=== PATIENT | male | born 1955 | race Two or more races ===

== ENCOUNTER 2017-04-07 09:23 | Observation (INO) | payer SELFPAY ==
--- NOTE | 2017-04-07 09:44 | CPEKG ---
Heart Rate: 74 RR Interval: 811 P-R Interval: 160 QRSD Interval: 92 QT Interval: 396 QTC Interval: 440 P Kanaranzi: 60 QRS Kanaranzi: 18 T Wave Kanaranzi: 33 EKG Severity - NORMAL ECG - EKG Impression: SINUS RHYTHM Electronically Signed By: Jalil Diaz 07-Apr-2017 15:55:36
--- NOTE | 2017-04-07 10:07 | EDPHY ---
H & P Time Seen by Provider: 04/07/17 09:25 HPI/ROS: Chief Complaint: Syncope HPI: 61-year-old male with a history of type 2 diabetes had a syncopal episode at work today. Had felt well prior to this. Began feeling a little lightheaded and lost consciousness. He was unconscious for about 5 minutes but he was incontinent of stool. There is no seizure-type activity. He was seen at [facility] yesterday with left leg pain. He was sent home on pain medications and stated take these at 5 o'clock this morning without eating. No chest pain or shortness of breath. No palpitations. Denies any calf swelling. No long. Is of immobility. ROS: 10 point Review of Systems is negative except as noted in the HPI. PMH: Type 2 diabetes Social History: No smoking, no alcohol, no recreational drug use Family History: non-contributory Physical Exam: Gen: Awake, Alert, No Distress HEENT: Nose: no rhinorrhea Eyes: PERRLA, EOMI Mouth: Moist mucosa Neck: Supple, no JVD Chest: nontender, lungs clear to auscultation Heart: S1, S2 normal, no murmur Abd: Soft, non-tender, no guarding Back: no CVA tenderness, no midline tenderness Ext: no edema, non-tender Skin: no rash Neuro: CN II-XII intact, Sensation grossly intact, Strength 5/5 in bilateral upper and lower extremities Constitutional: Initial Vital Signs Temperature (C) 36.7 C 04/07/17 09:36 Heart Rate 73 04/07/17 09:36 Respiratory Rate 18 04/07/17 09:36 Blood Pressure 149/67 H 04/07/17 09:36 O2 Sat (%) 98 04/07/17 09:36 O2 Delivery Mode Room Air Allergies/Adverse Reactions: No Known Allergies Allergy (Unverified 04/07/17 09:38) Home Medications: Medication Instructions Recorded glyBURIDE [Glyburide] 2.5 mg PO BIDMEAL 04/07/17 metFORMIN HCL [Glucophage 500 mg 500 mg PO BIDMEAL 04/07/17 (*)] Medical Decision Making - Diagnostics EKG Interpretation: ECG time 9:41 a.m.. Sinus rhythm with a rate of 74, normal axis, normal intervals, no acute ST or T-wave changes. Impression: Normal ECG. Imaging Results: Imaging Impressions Chest X-Ray 04/07/17 10:07 Impression: Normal chest. ED Course/Re-evaluation: Status post syncopal event. This certainly could be vasovagal secondary to his medications that he took. He does not have any calf swelling or vital signs findings suggestive of a PE time. His D-dimer is normal. ECG is unremarkable. Troponin negative. Given his risk factors coronary disease his age in his diabetes he will need to be admitted for syncope workup. I have discussed with Dee Calhoun. Patient to be admitted under Dr. Palacios's service. Departure - Departure Disposition: [facility] Inpatient Acute Clinical Impression: Syncope Condition: Fair
[2017-04-07 10:15] LABS: % IMMATURE GRANULYOCYTES 0.4 % (0.0-1.1); ABSOLUTE IMMATURE GRANULOCYTES 0.03 10^3/uL (0.00-0.10); ADD DIFF? NO; ADD MORPH? YES; ADD SCAN? NO; ATYPICAL LYMPHOCYTE FLAG 10 (0-99); FRAGMENT RBC FLAG 20 (0-99); HEMATOCRIT 34.2 % (40.0-51.0); HEMOGLOBIN 9.9 g/dL (13.7-17.5); LEFT SHIFT FLG 0 (0-99); LIPEMIA HEMOLYSIS FLAG 70 (0-99); MEAN CELL HEMOGLOBIN 19.8 pg (27.9-34.1); MEAN PLATELET VOLUME 9.2 fL (8.7-11.7); PLATELET CLUMPS FLAG 0 (0-99); PLATELET COUNT 537 10^3/uL (150-400); RED BLOOD CELL COUNT 4.99 10^6/uL (4.40-6.38)
[2017-04-07 10:18] LABS: ANION GAP 12 mEq/L (8-16); CALCIUM 8.9 mg/dL (8.5-10.4); CARBON DIOXIDE 22 mEq/l (22-31); CHLORIDE 103 mEq/L (97-110); CREATININE 0.8 mg/dL (0.7-1.3); GLOMERULAR FILTRATION RATE > 60; GLUCOSE 140 mg/dL (70-100); MEAN CELL HEMOGLOBIN CONCENTR. 28.9 g/dL (32.4-36.7); MEAN CELL VOLUME 68.5 fL (81.5-99.8); POTASSIUM 3.8 mEq/L (3.5-5.2); RED CELL DISTRIBUTION WIDTH 20.9 % (11.5-15.2); SODIUM 137 mEq/L (134-144)
[2017-04-07 10:29] LABS: TROPONIN I < 0.012 ng/mL (0.000-0.034)
[2017-04-07 10:52] LABS: PLATELET ESTIMATE INCREASED (ADEQ)
[2017-04-07 10:57] LABS: ELLIPTOCYTES 1+; HYPOCHROMIA 3+; MICROCYTES 3+; POLYCHROMASIA 1+
[2017-04-07] MEDS ORDERED: ONDANSETRON DISINTEGRATING 4 MG TAB PO PRN (11:52)
[2017-04-07] MEDS ORDERED: ONDANSETRON 4 MG/2 ML VIAL IVP PRN (11:52)
[2017-04-07] MEDS ORDERED: ACETAMINOPHEN 325 MG TAB PO PRN (11:52)
[2017-04-07 12:26] LABS: % SATURATION 4 % (20-55); TOTAL IRON BINDING CAPACITY 497 ug/dL (260-490)
[2017-04-07] MEDS ORDERED: IBUPROFEN 600 MG TAB PO PRN (14:03)
--- NOTE | 2017-04-07 15:01 | GHP ---
[f rep st] HISTORY AND PHYSICAL DATE OF ADMISSION: 04/07/2017 CHIEF COMPLAINT: Syncope. HISTORY OF PRESENT ILLNESS: A 61-year-old Prydein[place]-speaking male, a history of diabetes, presented after a syncopal episode at work. 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 The only symptom he had was seeing spots briefly right before. Denies any chest pain, shortness of breath, dizziness, lightheadedness, or palpitations. Did not eat breakfast this morning. He was started on Robaxin yesterday by his clinic due to leg pain and took a dose this morning. Denies fevers, chills, or sweats. No nausea, vomiting, or diarrhea. He has complained of new left knee, fibula pain starting last week and the reason when he went to his doctor at [facility] yesterday. It is a burning pain from the lateral aspect below the knee to his foot. He says his foot is weak. He can still walk on it. Has occasional blood in the stool. No melena. Has been told in the past he has hemorrhoids. REVIEW OF SYSTEMS: I completed a 10-point review of systems, negative except as noted in the HPI. PAST MEDICAL HISTORY: Diabetes, hemorrhoids. Had a colonoscopy 10 years ago and was told that he had hemorrhoids. PAST SURGICAL HISTORY: None. MEDICATIONS: Glipizide, metformin. ALLERGIES: None. FAMILY HISTORY: Diabetes. No coronary artery disease or strokes. Brother with colon cancer. SOCIAL HISTORY: Lives in [place] with one of his sons. No alcohol, tobacco, or illicits. PHYSICAL EXAM: VITAL SIGNS: Temperature 36.9, blood pressure 130/70, heart rate 76, respirations 16, 92% on room air. GENERAL: Lying in bed, in no acute distress. HEENT: PERRLA. Conjunctival pallor. Poor dentition. CV: Regular rate and rhythm. No murmurs, gallops, or rubs. LUNGS: Clear. No crackles or wheezing. ABDOMEN: Soft, nontender, nondistended. Positive bowel sounds. : No suprapubic tenderness. Does have external hemorrhoids. No blood. MUSCULOSKELETAL: 5/5 upper and lower extremities strength. Inability to plantar flex left foot. Normal sensation to touch throughout. Tender to palpation at the fibular head. NEURO: Normal proprioception. LABS: WBC of 7, hemoglobin 9, hematocrit 34, platelets 537. D-dimer is negative. Sodium 137, potassium 3.8, chloride 103, carbon dioxide 22, creatinine 0.8, glucose 140, calcium 8.9. Troponin less than 0.012. Iron sat 4 , iron 20, TIBC is 497. EKG is personally reviewed by me, normal sinus rhythm, no ST elevation or depression. Chest x-ray personally reviewed by me, no opacity or effusion. ASSESSMENT/PLAN: 1. Syncope. Suspect this is multifactorial in the setting of a new medication , Robaxin, and not eating breakfast this morning. He has not had any other similar symptoms. No CP or SOB. EKGs are reassuring with no ischemia, arrhythmia. D-dimer is negative, so no suspicion for pulmonary embolism. Will repeat troponin and EKG, monitor on telemetry. 2. Microcytic anemia: The patient does report intermittent blood in stool. He does have a history of hemorrhoids and there was noted on exam. Will check a fecal occult workup here, but he does need to have a repeat colonoscopy as an outpatient. 3. Left footdrop: This is new over the past week. He cannot plantar flex his foot. Suspect possible tibial nerve impingement. Xray pending. Will likely need an EMG study as an outpatient. 4. Leg pain. Initially concern for possible limb ischemia. However, has good pulses and symptoms are not consistent with this diagnosis. Evaluation as stated above. Trial gabapentin. 5. Diabetes. Will resume home medications. 6. Diet: Cardiac. 7. DVT prophylaxis: SCDs given anemia. 8. Disposition: Patient warrants observation admission given the acute syncopal episode, warranting repeat troponin and telemetry. /[id number]/MODL MTDD
[2017-04-07 15:15] LABS: HEMATOCRIT 33.6 % (40.0-51.0); HEMOGLOBIN 9.8 g/dL (13.7-17.5)
[2017-04-07 15:31] LABS: HEMOGLOBIN A1C 6.4 % (4.0-6.0)
[2017-04-07] MEDS: metFORMIN HCL 500 MG TAB PO SCH (18:20)
[2017-04-07] MEDS: glyBURIDE 2.5 MG TAB PO SCH (18:20)
[2017-04-07] MEDS: FERROUS SULFATE 325 MG TAB PO SCH (18:20)
[2017-04-07] MEDS: GABAPENTIN 300 MG CAP PO SCH (20:19)
[2017-04-07] MEDS ORDERED: FERROUS SULFATE 325 MG TAB PO SCH (21:00)
[2017-04-08 05:16] LABS: CHOLESTEROL 149 mg/dL (140-220); CHOLESTEROL/HDL RATIO 3.17 RATIO (1.00-4.97); HIGH DENSITY LIPOPROTEIN 47 mg/dL (40-65); LOW DENSITY LIPOPROTEIN 75 mg/dL (80-100); NON-HIGH DENSITY LIPOPROTEIN 102 mg/dL (90-129); TRIGLYCERIDE 136 mg/dL (40-150); VERY LOW DENSITY LIPOPROTEINS 27 mg/dL (8-25)
[2017-04-08 08:24] VITALS: BP 109/62; PULSE 65; RESP 18; TEMP 98.5; O2SAT 92
[2017-04-08] MEDS: GABAPENTIN 300 MG CAP PO SCH (08:31)
[2017-04-08] MEDS: glyBURIDE 2.5 MG TAB PO SCH (08:31)
[2017-04-08] MEDS: metFORMIN HCL 500 MG TAB PO SCH (08:31)
[2017-04-08] MEDS: FERROUS SULFATE 325 MG TAB PO SCH (08:31)
--- NOTE | 2017-04-08 08:39 | HOSPPROG ---
Hospitalist Progress Note Assessment/Plan: #Syncope: likely due to medication and not eating breakfast; possibly hypoglycemia. No e/o arrhythmia or ischemia. #Microcytic/iron deficiency anemia: has ext hemorrhoids, but needs colonoscopy michelle with fam hx of colon cancer #Left leg pain: xray shows tib/fib OA. Foot drop may be due to nerve compression. Need outpatient EMG, PT. Stop Robaxin since not spasms. Start gabapentin 300mg hs #Hypoglycemia: has been having several lows at home. Good control with A1c 6.4. Stop glyburide #DC today Time spent on visit: 40 min counseling son and patient on meds, FU plan and coordinating DC Subjective: low sugar last night, felt dizzy. Has low sugars at home Objective: Vital Signs Temp Pulse Resp BP Pulse Ox 36.9 C 65 18 109/62 92 04/08/17 08:00 04/08/17 08:00 04/08/17 08:00 04/08/17 08:00 04/08/17 08:00 Laboratory Results 04/07/17 Unknown 04/07/17 Unknown 04/07/17 04/08/17 04/09/17 05:59 05:59 05:59 Intake Total 590 Balance 590 - Physical Exam Constitutional: no apparent distress Eyes: PERRL Ears, Nose, Mouth, Throat: moist mucous membranes Cardiovascular: regular rate and rhythym Respiratory: no respiratory distress Gastrointestinal: normoactive bowel sounds, soft, non-tender abdomen Genitourinary: no bladder fullness Skin: warm Musculoskeletal: full muscle strength, other (TTP over left tib/fib.) Neurologic: AAOx3, sensation intact bilaterally, CN II-XII Intact, other ( decreased left foot plantar flexion) ICD10 Worksheet Patient Problems: Problems Problem Status Onset Syncope Acute
--- NOTE | 2017-04-08 10:18 | ASMTCASEMG ---
Living Arrangements What is your living Answers: Alone arrangement? Who do you live with? Type Of Residence What kind of residence do Answers: Apartment you live in? Discharge Plan Comments Coordination Status Comments Notes: Pt admitted for syncope. Pt has a that lives in [place]. Pt is being screened for Medicaid. Pt does not have any needs at this point. Pt reports that he will f/u with [facility] when d/c. CM available if there are any changes. Date Signed: 04/08/2017 10:17 AM Electronically Signed By:Corinne Bertrand
--- NOTE | 2017-04-08 10:34 | GDS ---
[f rep st] DISCHARGE SUMMARY DISCHARGE DIAGNOSES: 1. Syncope, likely multifactorial. 2. Hypoglycemia. 3. Iron deficiency/microcytic anemia. 4. Left leg pain. 5. Left foot drop. HISTORY OF PRESENT ILLNESS: A 61-year-old Nepali-speaking male with history of diabetes, presenting with a syncopal episode while at work. 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 The only symptom he had was seeing spots briefly right before. Denies any chest pain, shortness of breath, dizziness, lightheadedness, or palpitations. He did not have breakfast this morning and took Robaxin, which was newly prescribed that day for him. He denies fevers, chills or sweats. No nausea, vomiting or diarrhea. He has complained of new left knee pain, fibular pain starting last week, and it was the reason he went to his doctor at [facility]. It was burning from the lateral aspect below the knee to his foot, with associated weakness. He denies any numbness and can still walk on it. He occasionally has blood in his stool, no melena. He has been told in the past he has hemorrhoid. Had a colonoscopy 10 years ago that was normal. HOSPITAL COURSE BY PROBLEM: 1. Syncope: Suspect multifactorial given the fact that he took Robaxin on an empty stomach. After getting more history, it sounds like he intermittently has low blood sugars at home as well, so this may have contributed. D-dimer is negative. EKG and troponins were negative for ischemia. No evidence of arrhythmia on telemetry. His blood pressure has remained stable here, and he is doing well this morning. 2. Microcytic/iron-deficiency anemia: He does have external hemorrhoids on exam. He is iron deficient per labs. Emphasized colonoscopy as an outpatient, especially with history of colon cancer. He was started on iron supplementation. 3. Left footdrop: Has evidence of left tib-fib osteoarthritis and wonders if he is having tibial compression with extensive squatting at work. He would benefit from EMG study as an outpatient and possibly bracing the foot or physical therapy. X-ray just showed osteoarthritis. 4. Leg pain: Again as stated above. Not having spasms, so stopping Robaxin. Will trial Neurontin q.h.s. 5. Diabetes: We will discontinue glyburide with low sugars. He can continue metformin and follow up with his PCP. DISPOSITION: Patient is stable for discharge. MEDICATIONS: New medications: 1. Iron sulfate 325 mg b.i.d. 2. Gabapentin 300 mg q.h.s. Stop glyburide. FOLLOWUP: 1. PCP for colonoscopy. 2. Keep a log of blood sugars. 3. Follow up for EMG to evaluate footdrop. Time spent on DC > 35 min counseling patient and coordinating discharge. /[id number]/MODL MTDD
--- NOTE | 2017-04-08 17:01 | ASDISCHSUM ---
Discharge Information Plan Status:Home with No Needs Medically Cleared to Leave:04/08/2017 Discharge Date:04/08/2017 01:00 PM D/C Disposition:Home Health Service [facility] D/C Disposition:Home, Routine, Self-Care Projected Discharge Date:04/08/2017 12:00 AM Transportation at D/C:Family Discharge Delay Reason: Follow-Up Date:04/08/2017 12:00 AM Discharge Slot: Final Diagnosis: Placement Information Patient Contact Information Contact Name:UMANG Relationship:Son Address: Work Phone: City: [facility] Phone: State/Zip Code: Email: Financial Information Financial Class:Self-Pay Primary Plan Desc:SELF PAY Primary Plan Number: Secondary Plan Desc: Secondary Plan Number: Assessment Information [facility] Initial CM Assessment Living Arrangements What is your living Answers: Alone arrangement? Who do you live with? Type Of Residence What kind of residence do Answers: Apartment you live in? Discharge Plan Comments Coordination Status Comments Notes: Pt admitted for syncope. Pt has a that lives in [place]. Pt is being screened for Medicaid. Pt does not have any needs at this point. Pt reports that he will f/u with [facility] when d/c. CM available if there are any changes. Date Signed: 04/08/2017 10:17 AM Electronically Signed By:Corinne Bertrand Intervention Information
== END 2017-04-08 13:00 | disposition home or self-care (01) ==
LOC: F2W 11:56
PROVIDERS: ADMIT Internal Medicine; ATTEND Internal Medicine
DX: R55 Syncope and collapse (principal); E11.649 Type 2 diabetes mellitus with hypoglycemia without coma; D50.9 Iron deficiency anemia, unspecified; M79.605 Pain in left leg; M21.372 Foot drop, left foot; K64.9 Unspecified hemorrhoids; Z80.0 Family history of malignant neoplasm of digestive organs
CPT/HCPCS: G0378